=== PATIENT | female | born 1960 | race Caucasian/White ===

== ENCOUNTER 2018-09-29 14:53 | Emergency (ER) | payer OTHER ==
[~2018-09-29] VITALS: Ht 162.6 cm; Wt 64.9 kg
[2018-09-29 15:05] VITALS: BP_SYST 158
--- NOTE | 2018-09-29 15:09 | NUR ---
Patient to ER bed 02 for evaluation. Side rails up. Report given to ASPEN TOLEDO.
--- NOTE | 2018-09-29 16:55 | NUR ---
Patient is awake, alert, oriented x 4. Patient came in complaining of 5/10 aching right shoulder pain s/p mechanical fall. Patient reports falling while getting gas, tripping over gas pump. No signs of redness or swelling noted on right shoulder. No signs or symptoms of distress noted.
--- NOTE | 2018-09-29 17:00 | NUR ---
MARILEE Strickland at bedside examining patient.
--- NOTE | 2018-09-29 17:05 | NUR ---
Maren florentino in ED - 09/29/18 at 1708 by [email or web address] MARILEE Strickland at bedside examining patient.
[2018-09-29] MEDS: OXYCODONE/ACETAMINOPHEN 5-325 TABLET PO ONE (17:34)
[2018-09-29] MEDS: KETOROLAC TROMETHAMINE 60 MG/2 ML VIAL IM ONE (17:35)
[2018-09-29 18:10] VITALS: BP_SYST 145
--- NOTE | 2018-09-29 18:10 | NUR ---
Patient given written and verbal discharge instructions and verbalizes understanding. ER MD discussed with patient the results and treatment provided. Patient in stable condition. ID arm band removed. Rx of percocet, naproxen given. Patient educated on pain management and to follow up with PMD. Pain Scale 2/10, Dr. Strickland is aware. Opportunity for questions provided and answered. Medication side effect fact sheet provided.
== END 2018-09-29 18:10 | disposition home or self-care (01) ==
LOC: SED 14:53
DX: S42.251A Displaced fracture of greater tuberosity of right humerus, initial encounter for closed fracture (principal); Z86.79 Personal history of other diseases of the circulatory system; W18.40XA Slipping, tripping and stumbling without falling, unspecified, initial encounter; Y93.89 Activity, other specified; Y92.89 Other specified places as the place of occurrence of the external cause; Y99.8 Other external cause status
CPT/HCPCS: 73030; 96372; 99283; J1885

== ENCOUNTER 2018-10-21 17:28 | Inpatient (IN) | payer OTHER ==
[~2018-10-21] VITALS: Ht 162.6 cm; Wt 63.5 kg
[2018-10-21 17:41] VITALS: BP_SYST 150
[2018-10-21 18:37] LABS: BASOPHILS # (AUTO) 0.2 K/uL (0.0-0.2); BASOPHILS % (AUTO) 2.8 % (0.0-2.0); EOSINOPHILS % (AUTO) 0.5 % (0.0-4.0); HEMATOCRIT 23.9 % (36-48); HEMOGLOBIN 7.3 g/dL (12.0-16.0); LYMPHOCYTES # (AUTO) 2.1 K/uL (1.0-5.5); LYMPHOCYTES % (AUTO) 24.2 % (20.5-51.5); MEAN CORPUSCULAR HEMOGLOBIN 23 pg (27-31); MEAN CORPUSCULAR HGB CONC 31 % (32-36); MEAN CORPUSCULAR VOLUME 75 fL (79.0-98.0); MONOCYTES # (AUTO) 0.7 K/uL (0.0-1.0); MONOCYTES % (AUTO) 7.9 % (1.7-9.3); NEUTROPHILS # (AUTO) 5.5 K/uL (1.8-7.7); NEUTROPHILS % (AUTO) 64.6 % (40.0-70.0); PLATELET COUNT (AUTO) 214 K/uL (130-430); RED BLOOD CELL COUNT(AUTO) 3.18 MIL/uL (4.2-6.2); RED CELL DISTRIBUTION WIDTH 19.6 % (9.0-15.0); WHITE BLOOD COUNT (AUTO) 8.5 K/uL (4.8-10.8)
[2018-10-21 18:54] LABS: CALCIUM 9.2 mg/dL (8.4-11.0); CREATININE 0.73 mg/dL (0.55-1.30); TOTAL BILIRUBIN 0.5 mg/dL (0.0-1.0)
[2018-10-21 18:56] LABS: POTASSIUM 2.9 mmol/L (3.5-5.1)
[2018-10-21] MEDS ORDERED: POTASSIUM CHLORIDE 20 MEQ TAB.PRT.SR PO ONE (19:00)
[2018-10-21 19:18] LABS: PROTHROMBIN TIME > 90.0 SECS (9.5-12.5)
[2018-10-21 19:19] LABS: INR > 9.0 (0.8-1.2)
[2018-10-21] MEDS ORDERED: PHYTONADIONE 10 MG/ML AMP IM ONE (19:45)
[2018-10-21] MEDS ORDERED: DILTIAZEM HCL 25 MG/5 ML VIAL IVP ONE (20:15)
[2018-10-21] MEDS ORDERED: HYDR25TA4 PO (22:49)
[2018-10-21] MEDS ORDERED: ROSU20TA PO (22:49)
[2018-10-21] MEDS ORDERED: LOSA50TA3 PO (22:49)
[2018-10-21] MEDS ORDERED: ALPR0.25 PO (22:49)
[2018-10-21] MEDS ORDERED: ALBUTEROL SULFATE 0.083% 2.5 MG/3 ML VIAL.NEB INH PRN (23:45)
[2018-10-21] MEDS ORDERED: ONDANSETRON HCL 4 MG/2 ML VIAL IVP PRN (23:45)
[2018-10-21] MEDS ORDERED: HYDROcodone/ACETAMIN 10-325 MG TAB PO PRN (23:45)
[2018-10-21] MEDS ORDERED: HYDROcodone/ACETAMIN 5-325 MG TAB (NORCO/ VICODIN) PO PRN (23:45)
[2018-10-21] MEDS ORDERED: ACETAMINOPHEN 325 MG TABLET PO PRN (23:45)
[2018-10-21 23:50] VITALS: BP_SYST 136
[2018-10-22 01:40] VITALS: BP_SYST 136
[2018-10-22 04:18] VITALS: BP_SYST 126
[2018-10-22 06:30] LABS: INR 2.7 (0.8-1.2); PROTHROMBIN TIME 26.9 SECS (9.5-12.5)
[2018-10-22 06:37] LABS: ALBUMIN 3.3 g/dL (3.4-4.8); CALCIUM 9.4 mg/dL (8.4-11.0); CREATININE 0.56 mg/dL (0.55-1.30); POTASSIUM 3.5 mmol/L (3.5-5.1); TOTAL BILIRUBIN 0.6 mg/dL (0.0-1.0)
[2018-10-22 06:46] LABS: BASOPHILS # (AUTO) 0.1 K/uL (0.0-0.2); BASOPHILS % (AUTO) 1.7 % (0.0-2.0); EOSINOPHILS # (AUTO) 0.1 K/uL (0.0-0.4); EOSINOPHILS % (AUTO) 1.3 % (0.0-4.0); HEMATOCRIT 22.8 % (36-48); LYMPHOCYTES # (AUTO) 1.9 K/uL (1.0-5.5); LYMPHOCYTES % (AUTO) 26.3 % (20.5-51.5); MEAN CORPUSCULAR HEMOGLOBIN 23 pg (27-31); MEAN CORPUSCULAR HGB CONC 31 % (32-36); MEAN CORPUSCULAR VOLUME 76 fL (79.0-98.0); MONOCYTES # (AUTO) 0.6 K/uL (0.0-1.0); MONOCYTES % (AUTO) 8.4 % (1.7-9.3); NEUTROPHILS # (AUTO) 4.6 K/uL (1.8-7.7); NEUTROPHILS % (AUTO) 62.3 % (40.0-70.0); PLATELET COUNT (AUTO) 206 K/uL (130-430); RED BLOOD CELL COUNT(AUTO) 3.02 MIL/uL (4.2-6.2); RED CELL DISTRIBUTION WIDTH 19.1 % (9.0-15.0); WHITE BLOOD COUNT (AUTO) 7.3 K/uL (4.8-10.8)
[2018-10-22 07:47] VITALS: BP_SYST 115
[2018-10-22] MEDS ORDERED: ALPRAZolam 0.25 MG TABLET PO SCH (09:00)
[2018-10-22] MEDS ORDERED: HYDROCHLOROTHIAZIDE 25 MG TABLET (HCTZ) PO SCH (09:00)
[2018-10-22] MEDS ORDERED: LOSARTAN POTASSIUM 50 MG TABLET (COZAAR) PO SCH (09:00)
[2018-10-22] MEDS ORDERED: WARF4TAB2 PO (09:49)
[2018-10-22 10:32] VITALS: BP_SYST 112
[2018-10-22] MEDS ORDERED: ATORVASTATIN 20 MG TABLET PO SCH (21:00)
== END 2018-10-22 10:50 | disposition home or self-care (01) | DRG 813 ==
LOC: SED 17:28 → STU 21:46
PROVIDERS: ADMIT Internal Medicine Hospice and Palliative Medicine; ATTEND Internal Medicine Hospice and Palliative Medicine
PROC: 30233K1 Transfusion of Nonautologous Frozen Plasma into Peripheral Vein, Percutaneous Approach (ICD-10-PCS; principal; 2018-10-22)
DX: D68.9 Coagulation defect, unspecified (principal); E78.5 Hyperlipidemia, unspecified; D64.9 Anemia, unspecified; E87.6 Hypokalemia; T45.515A Adverse effect of anticoagulants, initial encounter; I10 Essential (primary) hypertension; I25.10 Atherosclerotic heart disease of native coronary artery without angina pectoris; I48.91 Unspecified atrial fibrillation; Z82.49 Family history of ischemic heart disease and other diseases of the circulatory system; Z95.2 Presence of prosthetic heart valve; Y92.89 Other specified places as the place of occurrence of the external cause; Z79.899 Other long term (current) drug therapy
CPT/HCPCS: 36415; 80053; 83735-TC; 85025; 85610-TC; 85730-TC; 86886; 86900; 86901; 96372; 96374; 99285; G0378; J3430; J3490; J7050; P9059

== ENCOUNTER 2018-10-28 12:12 | Inpatient (IN) | payer OTHER ==
[~2018-10-28] VITALS: Ht 162.6 cm; Wt 63.5 kg
[2018-10-28 12:12] VITALS: BP_SYST 142
[~2018-10-28 12:12] MED LIST: ALPR0.25 PO; HYDR25TA4 PO; LOSA50TA3 PO; WARF4TAB2 PO
[2018-10-28 13:27] LABS: BASOPHILS # (AUTO) 0.1 K/uL (0.0-0.2); BASOPHILS % (AUTO) 1.3 % (0.0-2.0); EOSINOPHILS % (AUTO) 0.2 % (0.0-4.0); HEMATOCRIT 25.1 % (36-48); HEMOGLOBIN 7.6 g/dL (12.0-16.0); LYMPHOCYTES # (AUTO) 1.1 K/uL (1.0-5.5); LYMPHOCYTES % (AUTO) 11.1 % (20.5-51.5); MEAN CORPUSCULAR HEMOGLOBIN 23 pg (27-31); MEAN CORPUSCULAR HGB CONC 30 % (32-36); MEAN CORPUSCULAR VOLUME 74 fL (79.0-98.0); MONOCYTES # (AUTO) 0.6 K/uL (0.0-1.0); MONOCYTES % (AUTO) 6.1 % (1.7-9.3); NEUTROPHILS # (AUTO) 7.9 K/uL (1.8-7.7); NEUTROPHILS % (AUTO) 81.3 % (40.0-70.0); PLATELET COUNT (AUTO) 180 K/uL (130-430); RED BLOOD CELL COUNT(AUTO) 3.38 MIL/uL (4.2-6.2); RED CELL DISTRIBUTION WIDTH 19.2 % (9.0-15.0); WHITE BLOOD COUNT (AUTO) 9.7 K/uL (4.8-10.8)
[2018-10-28 13:40] LABS: CALCIUM 9.5 mg/dL (8.4-11.0); CREATININE 0.86 mg/dL (0.55-1.30); POTASSIUM 3.2 mmol/L (3.5-5.1)
[2018-10-28 13:43] LABS: INR 1.5 (0.8-1.2); PROTHROMBIN TIME 15.3 SECS (9.5-12.5)
[2018-10-28 13:48] LABS: ALBUMIN 3.9 g/dL (3.4-4.8); TOTAL BILIRUBIN 0.4 mg/dL (0.0-1.0)
[2018-10-28] MEDS ORDERED: POTASSIUM CHLORIDE 8 MEQ TABLET.SA PO ONE (14:00)
[2018-10-28] MEDS ORDERED: *LOVENOX 1MG/KG Q24H/PHARMACY XX ONE (15:15)
[2018-10-28] MEDS ORDERED: ENOXAPARIN SODIUM 60 MG/0.6 ML SYRINGE SUBCUT ONE (15:30)
[2018-10-28] MEDS ORDERED: ALPR0.25 PO (15:41)
[2018-10-28] MEDS ORDERED: LORazepam 2 MG/ML VIAL IVP ONE (16:15)
[2018-10-28] MEDS ORDERED: LORazepam 2 MG/ML VIAL (FOR ER USE) ONE (16:21)
[2018-10-28 18:40] VITALS: BP_SYST 149
[2018-10-28 20:00] VITALS: BP_SYST 106
[2018-10-29] MEDS ORDERED: BACITRACIN 1 GM OINT TP ONE (00:40)
[2018-10-29 04:18] VITALS: BP_SYST 111
[2018-10-29 06:26] LABS: BASOPHILS # (AUTO) 0.2 K/uL (0.0-0.2); BASOPHILS % (AUTO) 2.4 % (0.0-2.0); EOSINOPHILS # (AUTO) 0.1 K/uL (0.0-0.4); EOSINOPHILS % (AUTO) 1.9 % (0.0-4.0); HEMATOCRIT 27.8 % (36-48); HEMOGLOBIN 8.6 g/dL (12.0-16.0); LYMPHOCYTES # (AUTO) 1.8 K/uL (1.0-5.5); LYMPHOCYTES % (AUTO) 27.4 % (20.5-51.5); MEAN CORPUSCULAR HEMOGLOBIN 24 pg (27-31); MEAN CORPUSCULAR HGB CONC 31 % (32-36); MEAN CORPUSCULAR VOLUME 77 fL (79.0-98.0); MONOCYTES # (AUTO) 0.6 K/uL (0.0-1.0); MONOCYTES % (AUTO) 8.5 % (1.7-9.3); NEUTROPHILS # (AUTO) 3.9 K/uL (1.8-7.7); NEUTROPHILS % (AUTO) 59.8 % (40.0-70.0); PLATELET COUNT (AUTO) 181 K/uL (130-430); RED BLOOD CELL COUNT(AUTO) 3.63 MIL/uL (4.2-6.2); WHITE BLOOD COUNT (AUTO) 6.6 K/uL (4.8-10.8)
[2018-10-29] MEDS ORDERED: SOD FERRIC GLUC COMPLEX/SUC 125 MG in NS 100 ML IV SCH (08:00)
[2018-10-29 08:04] VITALS: BP_SYST 102
[2018-10-29 08:28] LABS: TOTAL IRON BIND. CAPACITY 374 ug/dL (250-450)
[2018-10-29] MEDS ORDERED: ENOXAPARIN SODIUM 60 MG/0.6 ML SYRINGE SUBCUT SCH (09:00)
[2018-10-29 12:31] VITALS: BP_SYST 124
[2018-10-29 12:33] VITALS: BP_SYST 124
[2018-10-29] MEDS ORDERED: WARF6TAB20 PO (12:36)
[2018-10-29] MEDS ORDERED: LOVI60 SQ (12:36)
[2018-10-29] MEDS ORDERED: WARFARIN SODIUM 6 MG TABLET PO SCH (18:00)
== END 2018-10-29 12:57 | disposition home or self-care (01) | DRG 812 ==
LOC: SED 12:12 → STU 17:52
PROVIDERS: ADMIT Internal Medicine; ATTEND Internal Medicine
PROC: 30233N1 Transfusion of Nonautologous Red Blood Cells into Peripheral Vein, Percutaneous Approach (ICD-10-PCS; principal; 2018-10-29)
DX: D64.9 Anemia, unspecified (principal); E78.5 Hyperlipidemia, unspecified; R79.1 Abnormal coagulation profile; Z53.29 Procedure and treatment not carried out because of patient's decision for other reasons; I10 Essential (primary) hypertension; F17.210 Nicotine dependence, cigarettes, uncomplicated; Z95.2 Presence of prosthetic heart valve; Z79.899 Other long term (current) drug therapy; Z79.01 Long term (current) use of anticoagulants
CPT/HCPCS: 36415; 71046-TC; 73030; 80053; 82728; 83540-TC; 83550-TC; 83615-TC; 84484; 85025; 85610-TC; 85730-TC; 86886; 86900; 86901; 86920; 93005; 93306; 96372; 96374; 99285; G0378; J1650; J2060; J2916; J7030; P9021

== ENCOUNTER 2018-12-21 15:35 | Emergency (ER) | payer OTHER ==
[~2018-12-21] VITALS: Ht 162.6 cm; Wt 63.5 kg
[~2018-12-21 15:35] MED LIST changes: +LOVI60 SQ; +WARF6TAB20 PO
[2018-12-21 15:47] VITALS: BP_SYST 158
[2018-12-21 16:17] LABS: BASOPHILS # (AUTO) 0.1 K/uL (0.0-0.2); BASOPHILS % (AUTO) 1.3 % (0.0-2.0); EOSINOPHILS # (AUTO) 0.1 K/uL (0.0-0.4); EOSINOPHILS % (AUTO) 1.5 % (0.0-4.0); HEMATOCRIT 41.2 % (36-48); HEMOGLOBIN 13.3 g/dL (12.0-16.0); LYMPHOCYTES # (AUTO) 1.6 K/uL (1.0-5.5); LYMPHOCYTES % (AUTO) 22.7 % (20.5-51.5); MEAN CORPUSCULAR HEMOGLOBIN 28 pg (27-31); MEAN CORPUSCULAR HGB CONC 32 % (32-36); MEAN CORPUSCULAR VOLUME 86 fL (79.0-98.0); MONOCYTES # (AUTO) 0.5 K/uL (0.0-1.0); MONOCYTES % (AUTO) 7.5 % (1.7-9.3); NEUTROPHILS # (AUTO) 4.7 K/uL (1.8-7.7); PLATELET COUNT (AUTO) 129 K/uL (130-430); RED BLOOD CELL COUNT(AUTO) 4.77 MIL/uL (4.2-6.2); RED CELL DISTRIBUTION WIDTH 23.2 % (9.0-15.0)
--- NOTE | 2018-12-21 16:23 | NUR ---
Patient to ER bed 08 to gown for evaluation. Side rails up. Report received from PARIS Byrne
--- NOTE | 2018-12-21 16:30 | NUR ---
Patient came into ED because of her. sent her due to her coumadin levels. Pt reports that nanci her her level is currently 6.1. Patient has no s/s of distress or discomfort. Pt denies N/V/D. Pt denies SOB, headache, bleeding or bruises. Will continue to monitor.
--- NOTE | 2018-12-21 16:40 | NUR ---
ER Dr. Hahn at bedside examining patient.
[2018-12-21 16:49] LABS: CALCIUM 9.6 mg/dL (8.4-11.0); CREATININE 0.73 mg/dL (0.55-1.30); POTASSIUM 3.6 mmol/L (3.5-5.1)
[2018-12-21 16:54] LABS: TOTAL BILIRUBIN 0.4 mg/dL (0.0-1.0)
[2018-12-21 17:38] LABS: INR 3.7 (0.8-1.2); PROTHROMBIN TIME 35.9 SECS (9.5-12.5)
[2018-12-21 18:09] VITALS: BP_SYST 138
--- NOTE | 2018-12-21 18:09 | NUR ---
Patient given written and verbal discharge instructions and verbalizes understanding. ER MD discussed with patient the results and treatment provided. Patient in stable condition. ID arm band removed. No Rx given. Patient educated on pain management and to follow up with PMD in 2-3 days. Stop Coumadin for 1 day per ED MD. Pain Scale 0/10 Opportunity for questions provided and answered.
== END 2018-12-21 18:09 | disposition home or self-care (01) ==
LOC: SED 15:35
DX: R79.1 Abnormal coagulation profile (principal); E78.00 Pure hypercholesterolemia, unspecified; I10 Essential (primary) hypertension; Z86.79 Personal history of other diseases of the circulatory system; Z79.899 Other long term (current) drug therapy
CPT/HCPCS: 36415; 80053; 85025; 85610-TC; 85730-TC; 99283

== ENCOUNTER 2022-02-27 15:18 | Emergency (ER) | payer MEDICAID, OTHER ==
[~2022-02-27] VITALS: Ht 162.6 cm; Wt 67.1 kg
--- NOTE | 2022-02-27 15:42 | NUR ---
BIBS WITH C/C OF CARRYING PIANO KEYBOARDS TO HER CAR AND HAD MECHANICAL FALL AND LANDED ON THE PALM OF HER HAND. BRUISING NOTED TO LEFT WRIST AND FOREARM. PT CURRENTLY ON ANTICOAGULANTS. TENDERNESS TO TOUCH. DENIES ANY NUMBNESS OR TINGLING. ABLE TO MOVE HAND AND ARM IN ALL DIRECTIONS WITHOUT PAIN. PLACED BACK INTO [employer].
[2022-02-27 16:02] VITALS: BP_SYST 147
--- NOTE | 2022-02-27 16:30 | NUR ---
ER at bedside examining patient.
--- NOTE | 2022-02-27 16:45 | NUR ---
pt bib self to [facility] left wrist bruising. Pt denies pain, skin intact, pt wants to insure bruising is normal. Pt is currently on blood thinners.
--- NOTE | 2022-02-27 17:13 | NUR ---
Patient given written and verbal discharge instructions and verbalizes understanding. ER MD discussed with patient the results and treatment provided. Patient in stable condition. ID arm band removed. Opportunity for questions provided and answered. Medication side effect fact sheet provided.
[2022-02-27 18:01] VITALS: BP_SYST 148
== END 2022-02-27 18:01 | disposition home or self-care (01) ==
LOC: SED 15:18
DX: S50.12XA Contusion of left forearm, initial encounter (principal); I10 Essential (primary) hypertension; Z79.899 Other long term (current) drug therapy; W18.30XA Fall on same level, unspecified, initial encounter; Y93.89 Activity, other specified; Y92.89 Other specified places as the place of occurrence of the external cause; Y99.8 Other external cause status
CPT/HCPCS: 73090; 99283

== ENCOUNTER 2022-05-18 11:49 | Inpatient (IN) | payer MEDICAID ==
[~2022-05-18] VITALS: Ht 162.6 cm; Wt 67.6 kg
[2022-05-18 12:00] VITALS: BP_SYST 161
--- NOTE | 2022-05-18 12:00 | NUR ---
Patient triaged and placed in waiting room. VSS and patient appears in no acute distress at this time. Accompanied by DAUGHTER, awaiting available bed, and MD notified of need for MSE.
--- NOTE | 2022-05-18 12:45 | NUR ---
MARILEE Andrews at bedside examining patient.
[2022-05-18 13:03] LABS: BASOPHILS # (AUTO) 0.1 K/uL (0.0-0.2); BASOPHILS % (AUTO) 0.5 % (0.0-2.0); EOSINOPHILS % (AUTO) 0.3 % (0.0-4.0); LYMPHOCYTES # (AUTO) 2.4 K/uL (1.0-5.5); LYMPHOCYTES % (AUTO) 19.7 % (20.5-51.5); MEAN CORPUSCULAR HEMOGLOBIN 33 pg (27-31); MEAN CORPUSCULAR HGB CONC 33 % (32-36); MEAN CORPUSCULAR VOLUME 99 fL (79.0-98.0); MONOCYTES # (AUTO) 0.7 K/uL (0.0-1.0); MONOCYTES % (AUTO) 5.8 % (1.7-9.3); NEUTROPHILS # (AUTO) 9.1 K/uL (1.8-7.7); NEUTROPHILS % (AUTO) 73.7 % (40.0-70.0); PLATELET COUNT (AUTO) 168 K/uL (130-430); WHITE BLOOD COUNT (AUTO) 12.4 K/uL (4.8-10.8)
[2022-05-18 13:04] LABS: RED BLOOD CELL COUNT(AUTO) 1.95 MIL/uL (4.2-6.2)
[2022-05-18 13:06] LABS: HEMATOCRIT 19.4 % (36-48)
[2022-05-18 13:07] LABS: ANION GAP 7 (5-15); CALCIUM 8.8 mg/dL (8.4-11.0); CHLORIDE 104 mmol/L (98-107); CREATININE 0.75 mg/dL (0.55-1.30); GLUCOSE 114 mg/dL (70-99); HEMOGLOBIN 6.4 g/dL (12.0-16.0); UREA NITROGEN, BLOOD 17 mg/dL (8-21)
[2022-05-18 13:12] LABS: ALANINE AMINOTRANSFERASE 30 U/L (12-78); ALBUMIN 3.4 g/dL (3.4-4.8); ASPARTATE AMINOTRANSFERASE 26 U/L (10-37); TOTAL BILIRUBIN 0.2 mg/dL (0.0-1.0)
[2022-05-18 13:13] LABS: GFR AFRICAN AMERICAN 101 mL/min (>90)
[2022-05-18 13:24] LABS: INR 6.2 (0.8-1.2); PROTHROMBIN TIME 55.9 SECS (9.5-12.5)
--- NOTE | 2022-05-18 13:28 | NUR ---
Critical value PT-55.9, INR-6.2, PTT-35.2 reported to ER .
[2022-05-18] MEDS ORDERED: HUMAN PROTHROMBIN COMPLX(PCC) 500 UNITS KIT IV ONE ×2 (14:00→14:15)
[2022-05-18] MEDS ORDERED: PHYTONADIONE 10 MG/ML AMP IV ONE (14:15)
--- NOTE | 2022-05-18 17:00 | NUR ---
Consent signed per agreeing to administration of blood. Blood has been type and crossmatched. Blood sent from blood bank. Information on unit of blood checked against patient wristband at bedside by two nurses. All information matches. Patient or responsible republican informed of potential complications associated with blood transfusion. Informed of possible transfusion reaction symptoms. Aware of need to notify nurse at once of itching, shortness of breath, flushing, feeling of impending doom, or other symptoms not previously present. Vital signs taken within 5 minutes prior to initiation of transfusion. RN will remain with patient for first 15 minutes of transfusion at which time vital signs will be re-assessed.
[2022-05-18] MEDS ORDERED: WARF1TAB79 PO (17:28)
[2022-05-18] MEDS ORDERED: ESCI10TA PO (17:28)
[2022-05-18] MEDS ORDERED: SIMV-43 PO (17:28)
--- NOTE | 2022-05-18 18:39 | NUR ---
PT TOLERATING BLOOD TRANSFUSION WELL, DAUGHTER BEDSIDE. AAOX3, DENIES FEVER, CHILLS, PT IS SPEAKING IN COMPLETE SENTENCES.
--- NOTE | 2022-05-18 18:55 | NUR ---
COVID SWAB OBTAINED AND SENT TO LAB.
--- NOTE | 2022-05-18 19:15 | NUR ---
Admit bed requested Patient will be admitted to care of . Admitted to [facility] unit. Diagnosis GID Inpatient (Yes or No) Y Observation (Yes or No) N Orientation concerns or request close to nursing station (Yes or No) N Covid Status PENDING On vent or bipap N Isolation requirements N Needs a sitter N From Home (Yes or if No enter name of facility) HOME Requires Dialysis (Yes or No) N Med Rec Completed (Yes of No) Y
--- NOTE | 2022-05-18 19:37 | NUR ---
PT IS AA&OX4. AFEBRILE. NAD. DENIES PAIN. W/ BLOOD TRANSFUSING AT THE MOMENT. W/ FAMILY AT BEDSIDE. SAFE & HAZARD FREE ENVIRONMENT PROVIDED.
--- NOTE | 2022-05-18 20:44 | NUR ---
BLOOD TRANSFUSION 1ST UNIT COMPLETED. VSS. UNIT# [id number]. PT TOLE WELL, DILLAN TRANSFUSION REACTION.
--- NOTE | 2022-05-18 21:35 | NUR ---
BLOOD TRANSFUSION 2ND UNIT STARTED. VSS. AFEBRILE. VERIFIED W/ PARIS DODGE.
--- NOTE | 2022-05-18 21:52 | NUR ---
2ND UNIT [id number] BLOOD TRANSFUSION IN PROGRESS. VSS. AFEBRILE.
[2022-05-19] MEDS ORDERED: ALPR0.25 PO (00:02)
[2022-05-19] MEDS ORDERED: LORazepam 2 MG/ML VIAL IVP ONE (01:00)
[2022-05-19] MEDS ORDERED: fentaNYL CITRATE/PF 100 MCG/2 ML AMP IVP ONE (01:00)
--- NOTE | 2022-05-19 01:15 | NUR ---
2ND UNIT PRBC BLOOD TRANSFUSION COMPLETED.NO TRANSFUION REACTION NOTED. PT TOLERATED WELL.
--- NOTE | 2022-05-19 02:48 | NUR ---
Patient will be admitted to care of DR. ESTEVEZ. Admitted to TELE unit. Will go to room 135A. Belongings list completed. Complete and up to date summary report printed. SBAR report to be given TO PARIS FUENTES VIA PHONE with opportunity for questions.
[2022-05-19 03:00] VITALS: BP_SYST 134
--- NOTE | 2022-05-19 03:05 | NUR ---
INITIAL RN NOTES Pt AAOx4, VSS, no s/s distress noted. 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 Call light within reach. Bed low, locked, side rails up x2, alarm on. To monitor.
--- NOTE | 2022-05-19 05:00 | NUR ---
Dr. Mathews called for consult - Tiny who answered states Dr. Olivo is industrial technology education teacher.
--- NOTE | 2022-05-19 05:29 | NUR ---
Closing notes Pt asleep, no s/s distress noted. Call light within reach. Bed low, locked, siderails up x2, alarm on. To endorse to AM nurse.
[2022-05-19 08:00] VITALS: BP_SYST 128
--- NOTE | 2022-05-19 08:00 | NUR ---
INITIAL NOTES PATIENT IS AOX4. AMBULATORY WITH STEADY GAIT. NO SS OF DISTRESS NOTED. PATIENT IS NPO. DENIES SEVERE PAIN. DENIES N/V. VITAL SIGNS OBTAINED, DOCUMENTED. BREATHING IS EVEN AND NONLABORED, ON ROOM AIR. IV PATENT. SAFETY PRECAUTIONS IN PLACE AND CALL LIGHT WITHIN REACH.
[2022-05-19] MEDS: D5/0.45 NS 1,000 ML IV SCH ×2 (10:03→20:57)
[2022-05-19 12:00] VITALS: BP_SYST 127
--- NOTE | 2022-05-19 12:00 | NUR ---
NOTES PATIENT IS ON A CLEAR LIQUID DIET, EATING LUNCH. TOLERATING WELL. NO SS OF DISTRESS NOTED. PATIENT DENIES SEVERE PAIN. DAUGHTER AT BEDSIDE. SAFETY PRECAUTIONS IN PLACE AND RAMONA LIGHT WITHIN REACH.
[2022-05-19 14:41] LABS: BASOPHILS # (AUTO) 0.1 K/uL (0.0-0.2); EOSINOPHILS # (AUTO) 0.1 K/uL (0.0-0.4); HEMATOCRIT 27.3 % (36-48); HEMOGLOBIN 9.2 g/dL (12.0-16.0); LYMPHOCYTES # (AUTO) 1.3 K/uL (1.0-5.5); LYMPHOCYTES % (AUTO) 18.7 % (20.5-51.5); MEAN CORPUSCULAR HEMOGLOBIN 31 pg (27-31); MEAN CORPUSCULAR HGB CONC 34 % (32-36); MEAN CORPUSCULAR VOLUME 92 fL (79.0-98.0); MONOCYTES # (AUTO) 0.5 K/uL (0.0-1.0); NEUTROPHILS # (AUTO) 4.9 K/uL (1.8-7.7); NEUTROPHILS % (AUTO) 72.3 % (40.0-70.0); PLATELET COUNT (AUTO) 141 K/uL (130-430); RED BLOOD CELL COUNT(AUTO) 2.96 MIL/uL (4.2-6.2); RED CELL DISTRIBUTION WIDTH 19.7 % (9.0-15.0); WHITE BLOOD COUNT (AUTO) 6.8 K/uL (4.8-10.8)
[2022-05-19 16:00] VITALS: BP_SYST 151
--- NOTE | 2022-05-19 17:00 | NUR ---
NOTES NO CHANGE IN ASSESSMENT. EGD CONSENTS HAVE BEEN SIGNED. FAMILY AT BEDSIDE. SAFETY PRECAUTIONS IN PLACE AND CALL LIGHT WITHIN REACH.
[2022-05-19] MEDS ORDERED: ACETAMINOPHEN 325 MG TABLET PO PRN (17:45)
[2022-05-19] MEDS ORDERED: PANTOPRAZOLE SODIUM 40 MG TAB PO ONE (18:15)
--- NOTE | 2022-05-19 19:35 | NUR ---
NOTES PATIENT IS EATING DINNER. NO SS OF DISTRESS NOTED. BREATHING IS EVEN AND NONLABORED, ON ROOM AIR. PATIENT DENIES SEVERE PAIN. NO N/V NOTED. IV PATENT, IVF RUNNING. FAMILY AT BEDSIDE. ALL NEEDS MET. PATENT IS STABLE. SAFETY PRECAUTIONS IN PLACE AND CALL LIGHT WITHIN REACH. ENDORSED CARE TO PARIS MCDONALD.
[2022-05-19 20:20] VITALS: BP_SYST 139
--- NOTE | 2022-05-19 20:20 | NUR ---
Opening notes Pt AAOx4, VSS, resting in bed, no s/s distress noted. IVF infusing at ordered rate L.AC 20G clear and patent. NPO after midnight. Call light within reach. Bed low, locked, siderails up x2. To monitor.
[2022-05-19] MEDS: MAG-AL HYDROX/SIMETH 30 ML UDC PO PRN (20:53)
[2022-05-19] MEDS: ALPRAZolam 0.25 MG TABLET PO SCH (20:53)
[2022-05-20 00:03] VITALS: BP_SYST 122
--- NOTE | 2022-05-20 00:03 | NUR ---
NPO after midnight for EGD Beason cone placed on table.
--- NOTE | 2022-05-20 05:45 | NUR ---
Closing notes Pt awake, no s/s distress. Pt ambulated to bathroom, steady gait. Pt voided. IVF infusing at ordered rate L. AC clear and patent. Call light within reach. Safety maintained. To endorse to AM nurse.
--- NOTE | 2022-05-20 07:08 | NUR ---
receive the patient from the hide or skin buffer rn in a stable condition with admitting diagnosis of GI bleed aox4 still npo for EGD today . consent has been signed .
[2022-05-20 08:00] VITALS: BP_SYST 135
[2022-05-20 08:27] LABS: INR 1.1 (0.8-1.2); PROTHROMBIN TIME 10.8 SECS (9.5-12.5)
[2022-05-20] MEDS ORDERED: PANTOPRAZOLE SODIUM 40 MG TAB PO SCH (09:00)
[2022-05-20] MEDS ORDERED: MEPERIDINE 100 MG INJ. 100 MG/ML VIAL ONE (12:12)
[2022-05-20] MEDS ORDERED: SIMETHICONE 40 MG/0.6 ML ML PO ONE (13:36)
[2022-05-20] MEDS: MIDAZOLAM HCL 5 MG/5 ML VIAL ONE ×3 (13:36→13:40)
--- NOTE | 2022-05-20 14:30 | NUR ---
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 no significant results has been found . md wiley would like to have further sudies by colonoscopy tomorrow . the patient is hesitant to go on the procedure . the rn explain the risk and benefits of the procedure . the rn was able to persuade the patient to move on to the next procedure . clear liquid now again .but npo midnight
--- NOTE | 2022-05-20 16:19 | NUR ---
CONSULT HEMATOLOGY ANTICOAG MANAGEMENT RAFIA CORNEJO [phone] S/W SAAD OFFICE
[2022-05-20] MEDS ORDERED: BISACODYL 5 MG TABLET.DR (DULCOLAX) PO ONE (17:00)
[2022-05-20] MEDS ORDERED: GOLYTELY / COLYTE SOLUTION 4 LITERS PO ONE (18:00)
--- NOTE | 2022-05-20 18:04 | NUR ---
will endorse to night manager rn for continuity of care schedule colonoscopy tomorrow . npo midnight
[2022-05-20] MEDS ORDERED: HEPARIN 25,000 UNITS/D5W 250ML 250 ML IV PRN (18:15)
[2022-05-20] MEDS ORDERED: HEPARIN SODIUM,PORCINE 3000 UNITS/0.6 ML BOLUS IVP PRN (19:15)
[2022-05-20] MEDS ORDERED: HEPARIN SODIUM,PORCINE 2000 UNITS/0.4 ML BOLUS IVP PRN (19:15)
--- NOTE | 2022-05-20 22:00 | NUR ---
1700 DOSE OF DULCOLAX TAB & 1800 DOSE OF GOLYTLEY NOT GIVEN BY PREVIOUS SHIFT, BOTH GIVEN AT THIS TIME FOR COLONSCOPY PREP IN THE AM
[2022-05-20] MEDS: D5/0.45 NS 1,000 ML IV SCH ×2 (23:00→23:27)
--- NOTE | 2022-05-20 23:00 | NUR ---
1815 DOSE OF HEPARIN DRIP NOT ADMINISTERED BY PREVIOUS SHIFT PER ORDERS, UNABLE TO START AT THIS TIME, NEED CURRENT CBC, PTT, PT/INR, ALL LABS ORDERED STAT, AWAITING RESULTS, PATIENT INFORMED, RIGHT ARM IV PLACED BY BERE TOLEDO 20G, RESOURCE NURSE BERE RN INFORMED
[2022-05-20] MEDS ORDERED: HEPARIN 25,000 UNITS/D5W 250ML 250 ML IV ONE (23:09)
[2022-05-20] MEDS: ALPRAZolam 0.25 MG TABLET PO SCH (23:10)
[2022-05-20] MEDS: ONDANSETRON HCL 4 MG/2 ML VIAL IVP PRN (23:10)
[2022-05-20 23:13] VITALS: BP_SYST 150
[2022-05-21] VITALS: BP_SYST 119
[2022-05-21 00:55] LABS: BASOPHILS % (AUTO) 0.5 % (0.0-2.0); EOSINOPHILS # (AUTO) 0.1 K/uL (0.0-0.4); EOSINOPHILS % (AUTO) 1.5 % (0.0-4.0); HEMOGLOBIN 9.3 g/dL (12.0-16.0); LYMPHOCYTES # (AUTO) 1.2 K/uL (1.0-5.5); LYMPHOCYTES % (AUTO) 17.6 % (20.5-51.5); MEAN CORPUSCULAR HEMOGLOBIN 31 pg (27-31); MEAN CORPUSCULAR HGB CONC 33 % (32-36); MEAN CORPUSCULAR VOLUME 92 fL (79.0-98.0); MONOCYTES # (AUTO) 0.4 K/uL (0.0-1.0); NEUTROPHILS # (AUTO) 5.3 K/uL (1.8-7.7); NEUTROPHILS % (AUTO) 74.4 % (40.0-70.0); PLATELET COUNT (AUTO) 162 K/uL (130-430); RED BLOOD CELL COUNT(AUTO) 3.04 MIL/uL (4.2-6.2); RED CELL DISTRIBUTION WIDTH 19.9 % (9.0-15.0); WHITE BLOOD COUNT (AUTO) 7.1 K/uL (4.8-10.8)
[2022-05-21 01:13] LABS: INR 1.1 (0.8-1.2)
[2022-05-21] MEDS ORDERED: HEPARIN SODIUM,PORCINE 5,000 UNITS/ML VIAL ONE (02:11)
[2022-05-21] MEDS ORDERED: HEPARIN SODIUM,PORCINE 5,000 UNITS/ML VIAL IV ONE (02:30)
--- NOTE | 2022-05-21 03:00 | NUR ---
HEPARIN DRIP ORDERS FROM 181405/20/22, CLARIFIED WITH PHARMACY D/T HEPARIN BOLUS PARAMETERS, DUE TO EMAR STATING ORDER COMPLETE, PHARMACY RETIME HEPARIN BOLUS ORDERS, RECEIVED PTT, CURRENT PTT 22.7, HEPARIN STARTED AT 800U/HR WHICH EQUALS 8ML/HR, WITNESSED WITH 2ND NURSE ALONG WITH BOLUS, NEXT PTT AT 0900, ORDERS PLACED IN COMPUTER
[2022-05-21 08:00] VITALS: BP_SYST 144
[2022-05-21 08:18] LABS: BASOPHILS % (AUTO) 0.6 % (0.0-2.0); EOSINOPHILS # (AUTO) 0.1 K/uL (0.0-0.4); EOSINOPHILS % (AUTO) 1.9 % (0.0-4.0); HEMATOCRIT 28.8 % (36-48); HEMOGLOBIN 9.6 g/dL (12.0-16.0); LYMPHOCYTES # (AUTO) 1.2 K/uL (1.0-5.5); LYMPHOCYTES % (AUTO) 17.6 % (20.5-51.5); MEAN CORPUSCULAR HEMOGLOBIN 31 pg (27-31); MEAN CORPUSCULAR HGB CONC 33 % (32-36); MEAN CORPUSCULAR VOLUME 93 fL (79.0-98.0); MONOCYTES # (AUTO) 0.4 K/uL (0.0-1.0); MONOCYTES % (AUTO) 5.5 % (1.7-9.3); NEUTROPHILS # (AUTO) 5.2 K/uL (1.8-7.7); NEUTROPHILS % (AUTO) 74.4 % (40.0-70.0); PLATELET COUNT (AUTO) 169 K/uL (130-430); RED BLOOD CELL COUNT(AUTO) 3.11 MIL/uL (4.2-6.2); RED CELL DISTRIBUTION WIDTH 19.7 % (9.0-15.0); RETICULOCYTE COUNT 7.4 % (0.5-1.5)
[2022-05-21 08:22] LABS: INR 1.1 (0.8-1.2); PROTHROMBIN TIME 11.1 SECS (9.5-12.5)
[2022-05-21 08:27] LABS: TOTAL IRON BIND. CAPACITY 305 ug/dL (250-450)
[2022-05-21] MEDS ORDERED: HEPARIN SODIUM,PORCINE 3000 UNITS/0.6 ML BOLUS IVP PRN (11:45)
[2022-05-21] MEDS ORDERED: HEPARIN SODIUM,PORCINE 2000 UNITS/0.4 ML BOLUS IVP PRN (11:45)
[2022-05-21 12:00] VITALS: BP_SYST 128
[2022-05-21] MEDS: MEPERIDINE 100 MG INJ. 100 MG/ML VIAL ONE ×2 (12:19→12:24)
[2022-05-21] MEDS ORDERED: SIMETHICONE 40 MG/0.6 ML ML PO ONE (12:19)
[2022-05-21] MEDS: MIDAZOLAM HCL 5 MG/5 ML VIAL ONE ×3 (12:19→12:24)
[2022-05-21] MEDS: ONDANSETRON HCL 4 MG/2 ML VIAL IVP PRN (13:51)
[2022-05-21] MEDS: MAG-AL HYDROX/SIMETH 30 ML UDC PO PRN (13:52)
[2022-05-21 16:00] VITALS: BP_SYST 129
[2022-05-21 17:02] VITALS: BP_SYST 129
[2022-05-22 07:07] LABS: FERRITIN 27 ng/mL (15-150)
[2022-05-22 08:06] LABS: FOLATE (FOLIC ACID) >20.0 ng/mL (>3.0)
== END 2022-05-21 17:35 | disposition home or self-care (01) | DRG 241 ==
LOC: SED 11:49 → SMU 14:58
PROVIDERS: ADMIT Internal Medicine; ATTEND Internal Medicine
PROC: 30233N1 Transfusion of Nonautologous Red Blood Cells into Peripheral Vein, Percutaneous Approach (ICD-10-PCS; 2022-05-18)
PROC: 0DB78ZX Excision of Stomach, Pylorus, Via Natural or Artificial Opening Endoscopic, Diagnostic (ICD-10-PCS; principal; 2022-05-20 12:30)
PROC: 0DJD8ZZ Inspection of Lower Intestinal Tract, Via Natural or Artificial Opening Endoscopic (ICD-10-PCS; 2022-05-21)
DX: K29.71 Gastritis, unspecified, with bleeding (principal); K57.91 Diverticulosis of intestine, part unspecified, without perforation or abscess with bleeding; R65.10 Systemic inflammatory response syndrome (SIRS) of non-infectious origin without acute organ dysfunction; K25.4 Chronic or unspecified gastric ulcer with hemorrhage; K29.81 Duodenitis with bleeding; K64.8 Other hemorrhoids; I10 Essential (primary) hypertension; F32.A Depression, unspecified; F41.9 Anxiety disorder, unspecified; T45.515A Adverse effect of anticoagulants, initial encounter; F17.210 Nicotine dependence, cigarettes, uncomplicated; E78.5 Hyperlipidemia, unspecified; E78.00 Pure hypercholesterolemia, unspecified; D64.9 Anemia, unspecified; Z20.822 Contact with and (suspected) exposure to COVID-19; Z95.2 Presence of prosthetic heart valve; Y92.89 Other specified places as the place of occurrence of the external cause
CPT/HCPCS: 36415; 43239; 45378; 71045; 80053; 82607; 82728; 82746; 83540; 83550; 84484; 85025; 85044; 85610-TC; 85730-TC; 86886; 86900; 86901; 86920; 87081; 88305; 88312; 88313; 93005; 96374; 99291; J1644; J2060; J2175; J2250; J2405; J3430; J7030; P9021